=== PATIENT | female | born 1950 | race Two or more races ===

== ENCOUNTER 2025-02-03 19:30 | Emergency (ER) | payer OTHER ==
[~2025-02-03] VITALS: Ht 162.6 cm; Wt 53.5 kg
[2025-02-03] MEDS ORDERED: LEVO-T75 MCG PO (19:56)
== END 2025-02-03 21:38 | disposition home or self-care (01) ==
LOC: ER 19:30
DX: K08.89 Other specified disorders of teeth and supporting structures (principal); Z91.041 Radiographic dye allergy status